=== PATIENT | male | born 1980 | race Caucasian/White ===

== ENCOUNTER 2020-01-11 03:02 | Emergency (ER) | payer SELFPAY ==
[2020-01-11 03:40] LABS: ABSOLUTE BASOPHILS # (AUTO) 0.1 10^3/uL (0.0-0.2); ABSOLUTE EOSINOPHILS # (AUTO) 0.1 10^3/uL (0.0-0.6); ABSOLUTE LYMPHOCYTES (AUTO) 2.7 10^3/uL (0.5-4.7); ABSOLUTE MONOCYTES (AUTO) 0.5 10^3/uL (0.1-1.4); ABSOLUTE NEUT (AUTO) 5.1 10^3/uL (1.7-8.2); BASOPHILS % (AUTO) 1.2 % (0-2); EOSINOPHILS % (AUTO) 0.8 % (0-6); HEMATOCRIT 43.7 % (37.9-51.0); HEMOGLOBIN 15.2 g/dL (13.5-17.0); LYMPHOCYTES % (AUTO) 31.9 % (13-45); MEAN CORPUSCULAR HEMOGLOBIN 31.1 pg (27.0-33.4); MEAN CORPUSCULAR HGB CONC 34.8 g/dL (32.0-36.0); MEAN CORPUSCULAR VOLUME 89 fl (80-97); MONOCYTES % (AUTO) 6.2 % (3-13); PLATELET COUNT 114 10^3/uL (150-450); RED BLOOD COUNT 4.89 10^6/uL (4.35-5.55); RED CELL DISTRIBUTION WIDTH 13.2 % (11.5-14.0); SEGMENTED NEUTROPHILS % (AUTO) 59.9 % (42-78); TOTAL CELLS COUNTED % (AUTO) 100 %; WHITE BLOOD COUNT 8.4 10^3/uL (4.0-10.5)
[2020-01-11 03:55] LABS: ALBUMIN 5.1 g/dL (3.5-5.0); ALKALINE PHOSPHATASE 42 U/L (38-126); ANION GAP 11 (5-19); ASPARTATE AMINO TRANSFERASE 76 U/L (17-59); BILIRUBIN,DIRECT 0.1 mg/dL (0.0-0.4); BILIRUBIN,TOTAL 0.9 mg/dL (0.2-1.3); BLOOD UREA NITROGEN 13 mg/dL (7-20); CALCIUM 9.7 mg/dL (8.4-10.2); CARBON DIOXIDE 24 mmol/L (22-30); CHLORIDE 103 mmol/L (98-107); CREATINE KINASE 177 U/L (55-170); GLUCOSE 147 mg/dL (75-110)
[2020-01-11 04:07] LABS: CREATINE KINASE MB 1.37 ng/mL (<4.55); TROPONIN I < 0.012 ng/mL
--- NOTE | 2020-01-11 04:44 | ER Document Report ---
ED General - General Chief Complaint: Chest Pain Stated Complaint: CHEST PAIN Time Seen by Provider: 01/11/20 04:34 Primary Care Provider: KARIS KONG MD [ACTIVE STAFF] - Follow up as needed Notes: Patient is a 39-year-old male that comes emergency department for chief complaint of intermittent chest pain, most noticeably on the left side, occasionally sharp, this is been going on for approximately 4 days. He also reports pain and tightness in his upper shoulder and neck which is worse with range of motion. Denies injury. He states that he generally feels "awful", he states that sometimes he will get tingling in his extremities (especially after eating), he states he is concerned he might be a diabetic. He states he gets generalized abdominal pain in the mid to upper abdomen on a regular basis. He admits to cocaine use, last use was 2 days ago. He smokes marijuana, drinks alcohol on weekends, but denies tobacco abuse. He takes no daily medications, he has no except previous alcohol abuse and an episode of pancreatitis. - Related Data Allergies/Adverse Reactions: No Known Allergies Allergy (Unverified 01/11/20 04:54) Home Medications: aspirin 325mg Past Medical History - General Information source: Patient - Social History Smoking Status: Former Smoker Chew tobacco use (# tins/day): No Frequency of alcohol use: Social Drug Abuse: Cocaine, Marijuana Lives with: Family Family History: Reviewed & Not Pertinent Patient has homicidal ideation: No - Immunizations Hx Diphtheria, Pertussis, Tetanus Vaccination: Yes Review of Systems - Review of Systems Constitutional: See HPI EENT: No symptoms reported Cardiovascular: See HPI Respiratory: No symptoms reported Gastrointestinal: See HPI Genitourinary: No symptoms reported Male Genitourinary: No symptoms reported Musculoskeletal: No symptoms reported Skin: No symptoms reported Hematologic/Lymphatic: No symptoms reported Neurological/Psychological: See HPI Physical Exam - Vital signs Vitals: Temp Pulse Resp BP Pulse Ox 98.5 F 99 22 H 196/110 H 99 01/11/20 03:17 01/11/20 03:17 01/11/20 03:17 01/11/20 03:17 01/11/20 03:17 - Notes Notes: GENERAL: Alert, interacts well. No acute distress. HEAD: Normocephalic, atraumatic. EYES: Pupils equal, round, and reactive to light. Extraocular movements intact. ENT: Oral mucosa moist, tongue midline. Oropharynx unremarkable. Airway patent. NECK: Full range of motion. Supple. Trachea midline. No lymphadenopathy. LUNGS: Clear to auscultation bilaterally, no wheezes, rales, or rhonchi. No respiratory distress. There is some mild tenderness over the general chest wall, slightly worse on the right, this is very minimal. HEART: Regular rate and rhythm. No murmur ABDOMEN: Soft, non-tender. Non-distended. EXTREMITIES: Moves all 4 extremities spontaneously. No edema, normal radial and dorsalis pedis pulses bilaterally. No cyanosis. BACK: There is some tenderness in the left trapezius muscle with muscle spasm, otherwise completely unremarkable. No cervical, thoracic, lumbar midline tenderness. No saddle anesthesia, normal distal neurovascular exam. Moves all extremities in full range of motion. NEUROLOGICAL: Alert and oriented x3. Normal speech. Cranial nerves II through XII grossly intact. Strength 5/5 in all extremities. PSYCH: Patient talks rapidly and anxiously SKIN: Very mildly flushed, otherwise unremarkable Course - Re-evaluation Re-evalutation: Patient is initially very anxious, he has a lot of questions, he states that he is worried about his "ongoing pancreatitis" because he gets frequent abdominal pains in his general mid to upper abdomen, he gets intermittent chest pains, he has pain in his neck. He also states he is worried he is diabetic. Based on his benign abdominal exam, multiple substance abuse including alcohol, recreational drugs, and essentially only drinking sodas reportedly I suspect gastritis. Life is not elevated. Very low suspicion of acute abdomen. Tropo dioni cycled and negative EKG unremarkable, chest x-ray shows borderline enlarged heart but otherwise unremarkable. LFTs are mildly elevated but patient drink alcohol tonight. Very low suspicion of ACS. Patient does not have a headache or chest pain on reevaluation. I had a long conversation with patient about recreational drugs, alcohol, gastritis, and his overall health. Patient is very reassured, after this he became calm and relaxed, blood pressure down trended to 140 systolic. Patient does state that he will follow-up with primary care, he does understand precautions, he does understand return instructions. Stable and well-appearing with no current symptoms at time of discharge. - Vital Signs Vital signs: Temp Pulse Resp BP Pulse Ox 98.5 F 99 19 145/84 H 97 07/11/20 03:17 01/11/20 03:17 01/11/20 05:01 01/11/20 05:01 01/11/20 05:01 - Laboratory Result Diagrams: 01/11/20 03:20 01/11/20 03:20 Laboratory results interpreted by me: 01/11/20 01/11/20 03:20 03:20 Plt Count 114 L Glucose 147 H AST 76 H ALT 72 H Creatine Kinase 177 H Total Protein 9.0 H Albumin 5.1 H - EKG Interpretation by Me Additional EKG results interpreted by me: EKG shows sinus rhythm at a rate of 91, QTc 439, normal axis, no T wave inversions or ST segment changes in consecutive leads. Discharge - Discharge Clinical Impression: Anxiety, Upper back pain Chest pain Qualifiers: Chest pain type: unspecified Qualified Code(s): R07.9 - Chest pain, unspecified Abdominal pain Qualifiers: Abdominal location: unspecified location Qualified Code(s): R10.9 - Unspecified abdominal pain Condition: Stable Disposition: HOME, SELF-CARE Additional Instructions: Your work-up at this time is reassuring. Your heart size is borderline enlarged, you need to have your blood pressure rechecked with primary care, avoid any illegal/recreational substances as these are extremely dangerous and can also lead to worsening health condition over time as we discussed. I recommend that you take the Robaxin muscle relaxer, apply heat and massage to your left upper back and neck. Because of your ongoing symptoms of upper abdominal inflammation I recommend that temporarily you avoid caffeine, NSAIDs (aspirin, ibuprofen, naproxen, etc.), spicy food, alcohol. Avoid tobacco. Take the Carafate and Pepcid as prescribed, symptoms should gradually improve and resolve. Follow-up with primary care in regards to this as well. Return if you worsen including severe worsening pain, vomiting, fever, difficulty breathing, passing out, or any other concerning symptoms. Prescriptions: Sucralfate [Carafate 1 gm Tablet] 1 gm PO QID #20 tablet Famotidine [Pepcid] 20 mg PO BID #20 tablet Methocarbamol [Robaxin-750] 750 mg PO QID PRN #20 tablet PRN Reason: Referrals: MARVEL TEIXEIRA MD [COMMUNITY BASED STAFF] - Follow up in 1 week
--- NOTE | 2020-01-11 04:53 | RADIOLOGY REPORT (SQ) ---
AP Portable chest: 01/11/2020 3:52 AM CDT History: 39-year old patient with chest pain. Comparison: None available Findings: The cardiomediastinal silhouette is at the upper limits of normal in size. No pneumothorax is seen. No acute airspace opacities are seen. No discrete pleural effusion is apparent. Impression: No acute airspace opacities are seen. The cardiomediastinal silhouette is enlarged.
[2020-01-11 07:34] VITALS: BP 142/88
--- NOTE | 2020-01-11 09:46 | EKG REPORT ---
SEVERITY:- NORMAL ECG - SINUS RHYTHM : Confirmed by: Elvin Rubi MD 11-Jan-2020 09:46:08
== END 2020-01-11 07:37 | disposition home or self-care (01) ==
LOC: ER 03:02
DX: F41.9 Anxiety disorder, unspecified (principal); R07.9 Chest pain, unspecified; M54.2 Cervicalgia; R20.2 Paresthesia of skin; R10.84 Generalized abdominal pain; M54.9 Dorsalgia, unspecified; M25.519 Pain in unspecified shoulder; R23.2 Flushing; F14.10 Cocaine abuse, uncomplicated; F12.10 Cannabis abuse, uncomplicated; F10.10 Alcohol abuse, uncomplicated; Z87.891 Personal history of nicotine dependence; Z87.19 Personal history of other diseases of the digestive system
CPT/HCPCS: 36415; 71045; 80053; 82550; 82553; 83690; 84484; 85025; 93005; 93010; 99285